=== PATIENT | female | born 1965 | race Caucasian/White ===

== ENCOUNTER → 2017-03-29 | Outpatient (CLI) | payer OTHER ==
[~2017-03-29] MED LIST: ASPI-496 PO; Estrogen PO; MULT-724 PO; PROG100C16 PO
[2017-03-29 12:46] LABS: HEMATOCRIT 40.4 % (34.6-47.8); HEMOGLOBIN 13.4 g/dL (11.7-16.4); WHITE BLOOD COUNT 6.6 x10^3/uL (3.4-10)
[2017-03-29 12:52] LABS: ASPARTATE AMINO TRANSFERASE 17 U/L (15-37); BLOOD UREA NITROGEN 18 mg/dL (7-18)
== END | disposition home or self-care (01) ==
LOC: STAR 11:18
PROVIDERS: ATTEND Obstetrics & Gynecology
DX: Z01.818 Encounter for other preprocedural examination (principal); N92.0 Excessive and frequent menstruation with regular cycle; N93.8 Other specified abnormal uterine and vaginal bleeding; Z78.0 Asymptomatic menopausal state
CPT/HCPCS: 36415; 80053; 81003; 84703; 85025; 93005

== ENCOUNTER 2017-04-08 06:12 | Day surgery (SDC) | payer OTHER ==
[~2017-04-08] VITALS: Ht 165.1 cm; Wt 74.4 kg
[2017-04-08 06:45] VITALS: BP 141/88
[2017-04-08] MEDS ORDERED: LACTATED RINGERS 1,000 ML IV SCH (06:46)
[2017-04-08] MEDS ORDERED: BUPIVACAINE/PF 0.25% ONE (07:01)
[2017-04-08] MEDS ORDERED: OXYTOCIN 10 UNITS/ML, 1ML ONE (07:01)
[2017-04-08] MEDS ORDERED: VASOPRESSIN 20 UNIT/ML, 1ML ONE (07:03)
[2017-04-08] MEDS ORDERED: MIDAZOLAM 1 MG/ML, 2ML ONE (07:13)
[2017-04-08] MEDS ORDERED: FENTANYL PF 100 MCG/2ML ONE (07:13)
[2017-04-08 07:19] LABS: HCG UR OBC PASS
[2017-04-08] MEDS ORDERED: DEXAMETHASONE 4 MG/ML, 1ML ONE (07:29)
[2017-04-08] MEDS ORDERED: ONDANSETRON 2MG/ML, 2ML ONE (07:29)
[2017-04-08] MEDS ORDERED: PROPOFOL 10 MG/ML, 20ML ONE (07:29)
[2017-04-08] MEDS ORDERED: BUPIVACAINE/PF 0.25% INFIL ONE (07:54)
[2017-04-08] MEDS ORDERED: ACETAMINOPHEN 325 MG TABLET PO PRN (08:00)
[2017-04-08] MEDS ORDERED: HYDROmorphone 1 MG/ML, 1ML IV PRN (08:00)
[2017-04-08] MEDS ORDERED: METOPROLOL 1 MG/ML, 5ML IV PRN (08:00)
[2017-04-08] MEDS ORDERED: OXYcodone 5 MG/5 ML ORAL.SOL UDC PO PRN (08:00)
[2017-04-08] MEDS ORDERED: PROMETHAZINE 25 MG/ML, 1ML IV PRN (08:00)
[2017-04-08] MEDS ORDERED: MEPERIDINE/PF 25MG/0.5ML IVPush PRN (08:00)
[2017-04-08] MEDS ORDERED: FENTANYL PF 100 MCG/2ML IV PRN (08:00)
[2017-04-08] MEDS ORDERED: MIDAZOLAM 1 MG/ML, 2ML IV PRN (08:00)
[2017-04-08] MEDS ORDERED: hydrALAzine 20 MG/ML, 1ML IV PRN (08:00)
[2017-04-08] MEDS ORDERED: KETOROLAC 30 MG/1 ML IVPush PRN (08:30)
[2017-04-08] MEDS ORDERED: ACETAMINOPHEN 650 MG/20.3 ML UDC ONE (08:31)
[2017-04-08] MEDS ORDERED: KETOROLAC 30 MG/1 ML ONE (08:31)
== END 2017-04-08 11:00 ==
LOC: OUT 06:12
PROVIDERS: ATTEND Obstetrics & Gynecology
DX: N92.0 Excessive and frequent menstruation with regular cycle (principal); N93.8 Other specified abnormal uterine and vaginal bleeding; Z79.82 Long term (current) use of aspirin; Z88.1 Allergy status to other antibiotic agents; Z98.890 Other specified postprocedural states
CPT/HCPCS: 58558; 81025; 88305; J1100; J1885; J2250; J2405; J2704; J3010; J3490; J7120; J2590